=== PATIENT | male | born 1955 | race Caucasian/White ===

== ENCOUNTER 2024-01-05 01:45 | Emergency (ER) | payer OTHER, BC ==
[2024-01-05 02:02] VITALS: BP 142/96; PULSE 79; RESP 20; TEMP 98.6; BMI 25.9
[2024-01-05 02:26] LABS: BASO % 0.7 % (0-2.0); EOS % 1.8 % (0-4.5); HEMOGLOBIN 15.6 GM/dL (11.7-16.9); LYMPH % 23.5 % (8-40); MCH 32.2 pg (25.7-33.7); MCHC 34.7 g/dl (32.0-35.9); MEAN CELL VOLUME 92.9 fl (80-96); MEAN PLT VOLUME 8.8 fl (7.5-11.1); MONO % 9.8 % (3.8-10.2); NEUT % 64.2 % (42.8-82.8); PLATELET COUNT 212 10^3/uL (134-434); RBC 4.85 M/mm3 (4.00-5.60); RDW 13.9 % (11.9-15.9); WHITE BLOOD COUNT 8.6 K/mm3 (4.0-10.0)
[2024-01-05 02:53] LABS: POTASSIUM 3.6 mmol/L (3.5-5.1)
[2024-01-05 02:54] LABS: CALCIUM 8.8 mg/dL (8.5-10.1)
[2024-01-05 02:55] LABS: BLOOD UREA NITROGEN 14.5 mg/dL (7-18)
== END 2024-01-05 03:57 | disposition home or self-care (01) ==
LOC: JER 01:45
DX: I48.0 Paroxysmal atrial fibrillation (principal); R00.2 Palpitations; R07.89 Other chest pain
CPT/HCPCS: 36415; 80048; 82550; 84484; 85025; 93005; 93010; 99284-25